=== PATIENT | female | born 1975 | race Asian ===

== ENCOUNTER 2024-08-23 16:55 | Emergency (ER) | payer OTHER ==
[2024-08-23 17:09] VITALS: BMI 23.9
[2024-08-23] MEDS: SODIUM CHLORIDE 1,000 ML IV STA (18:06)
[2024-08-23 18:07] LABS: ALBUMIN 4.7 g/dl (3.4-5.0); ALK PHOS 32 U/L (45-117); ANION GAP 17 mmol/L (4-13); BILIRUBIN,TOTAL 0.5 mg/dl (0.2-1); CALCIUM 9.9 mg/dl (8.5-10.1); CHLORIDE 104 mmol/L (98-107); CO2 18 mmol/L (21-32); CREATININE 0.7 mg/dl (0.6-1.3); GLUCOSE,RANDOM 227 mg/dl (74-106); POTASSIUM 3.2 mmol/L (3.5-5.1); SGOT/AST 20 U/L (15-37); SGPT/ALT 24 U/L (7-52); SODIUM 139 mmol/L (136-145); TOT PROT 7.8 g/dl (6.4-8.2)
[2024-08-23 18:09] LABS: HEMATOCRIT 37.3 % (32.4-45.2); HEMOGLOBIN 12.4 G/dL (10.7-15.3); MCH 29.5 pg (25.7-33.7); MCHC 33.4 g/dl (32.0-36.0); MEAN CELL VOLUME 88.5 fl (80-96); MEAN PLT VOLUME 9.2 fl (7.5-11.1); PLATELET COUNT 378.6 10^3/uL (134-434); RBC 4.22 10^6/uL (3.60-5.2); RDW 14.5 % (11.6-15.6)
[2024-08-23 18:17] LABS: INR 0.89 (0.83-1.09); PROTHROMBIN TIME (PATIENT) 10.2 SEC (9.7-13.0)
[2024-08-23 18:20] LABS: ACTIVATED PTT 27.8 SECONDS (25.2-36.5)
[2024-08-23 18:48] LABS: HCG,QUALITATIVE URINE NEGATIVE
[2024-08-23 18:56] LABS: PLATELET ESTIMATE ADEQUATE
[2024-08-23] MEDS ORDERED: POTASSIUM CHLORIDE TABS 20 MEQ TABLET.ER (FP) PO ONE (18:58)
[2024-08-23] MEDS: POTASSIUM CHLORIDE ORAL LIQUID 20 MEQ/15 ML PO ONE (19:00)
[2024-08-23 19:19] LABS: VENOUS O2 SATURATION 92.3 % (70-80); VENOUS PCO2 17.7 mmHg (38-52); VENOUS PH 7.588 (7.310-7.410)
[2024-08-23 19:35] LABS: N-TERMINAL BNP 27.7 pg/ml (5-125)
[2024-08-23 20:00] LABS: COCAINE, UR NEGATIVE (NEGATIVE); OPIATES, URI NEGATIVE (NEGATIVE); PHENCYCLIDINE,URINE NEGATIVE (NEGATIVE)
[2024-08-23 20:04] LABS: METHADONE, UR NEGATIVE (NEGATIVE); URINE AMPHETAMINES NEGATIVE (NEGATIVE); URINE BARBITURATES NEGATIVE (NEGATIVE); URINE BENZODIAZEPINES NEGATIVE (NEGATIVE)
[2024-08-23 20:47] VITALS: PULSE 100; RESP 16; TEMP 98.1
[2024-08-23 20:52] VITALS: BP 127/54
== END 2024-08-23 22:19 | disposition home or self-care (01) ==
LOC: FER 16:55
PROC: 3E0337Z Introduction of Electrolytic and Water Balance Substance into Peripheral Vein, Percutaneous Approach (ICD-10-PCS; principal; 2024-08-23)
DX: R06.4 Hyperventilation (principal); F41.9 Anxiety disorder, unspecified; F12.90 Cannabis use, unspecified, uncomplicated; R00.0 Tachycardia, unspecified; R06.02 Shortness of breath
CPT/HCPCS: 36415; 71045-TC-FY; 80053; 80307; 81003; 81015; 82010; 82803; 82962; 83605; 83880; 84443; 84484; 84703; 85027; 85379; 85610; 85730; 86850; 86900; 86901; 87086; 93005; 99291